=== PATIENT | female | born 2000 | race Caucasian/White ===

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

== ENCOUNTER 2019-02-10 19:05 | Emergency (ER) | payer OTHER, SELFPAY ==
[2019-02-10 19:10] VITALS: BP 129/82; PULSE 134; RESP 20; TEMP 37; O2SAT 100; BMI 19.5
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
[2019-02-10 19:36] LABS: Add Manual Diff / Slide Review NO; Basophils Absolute Auto 0 /uL (0-100); Basophils Percent Auto 0.4 % (0-2); Eosinophils Absolute Auto 100 /uL (0-450); Eosinophils Percent Auto 1.7 % (2-4); Hematocrit 40.9 % (36-46); Lymphocytes Absolute Auto 2000 /uL (1100-4500); Lymphocytes Percent Auto 27.1 % (25-40); Mean Corpuscular HGB Conc 34.3 % (30-36); Mean Corpuscular Hemoglobin 30.1 PG (26-34); Mean Corpuscular Volume 87.7 fL (80-100); Monocytes Absolute Auto 600 /uL (0-900); Neutrophils Absolute Auto 4700 /uL (1500-7000); Neutrophils Percent Auto 62.8 % (50-75); Platelet Count 224 X10^3/uL (150-400); Red Blood Cell Count 4.67 X10^6/uL (4.0-5.2); Red Cell Distribution Width 12.3 % (11.6-14.8); White Blood Cell Count 7.5 X10^3/uL (4.5-11.0)
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
[2019-02-10] MEDS: HYDROMORPHONE 1 MG INJ 0.5 MG IV ×2 (19:43→20:07)
[2019-02-10 19:46] LABS: Blood Urea Nitrogen 7 mg/dL (7-17); Calcium 10.1 mg/dL (8.4-10.2); Carbon Dioxide 23 mmol/L (22-32); Chloride 104 mmol/L (98-107); Estimated Glomerular Filt Rate > 60.0 mL/min (>60); Glucose 102 mg/dL (70-100); HEMOLYSIS < 15 (0-50); Potassium 3.5 mmol/L (3.4-5.1); Sodium 136 mmol/L (137-145)
--- NOTE | 2019-02-10 19:53 | PC.NURSE ---
Having numbness to right hand, most notably right pinky and right thumb. Very limited range of motion to hand, but no pain to wrist. Complaining of pain to the right elbow and right shoulder. No visible deformity seen.
[2019-02-10 19:59] LABS: Pregnancy Test Serum,Qual Negative (Negative)
[2019-02-10 20:04] VITALS: BP 128/73; PULSE 98; RESP 14; O2SAT 98
[2019-02-10 20:30] VITALS: BP 119/65; PULSE 95; RESP 16; O2SAT 100
--- NOTE | 2019-02-10 20:37 | PC.NURSE ---
Back from head/cspine CT. RN with patient for c-spine precautions during transfer to CT table. Pt's hand numbness remains unchanged after transfer.
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
[2019-02-10] MEDS: KETOROLAC 60 MG/2 ML VIAL 30 MG IV (21:05)
[2019-02-10 21:15] VITALS: PULSE 107; RESP 20; O2SAT 98
[2019-02-10 22:00] VITALS: BP 111/63; PULSE 83; RESP 14; O2SAT 99
[2019-02-10] MEDS: HYDROCODONE/ACET 5/325 PREPACK 1 BOTTLE MISC (22:17)
== END 2019-02-10 22:22 | disposition home or self-care (01) ==
PROVIDERS: Emergency Provider Emergency Medicine
DX: S40.021A Contusion of right upper arm, initial encounter (principal); G58.8 Other specified mononeuropathies; R20.0 Anesthesia of skin; M54.2 Cervicalgia; V86.56XA Driver of dirt bike or motor/cross bike injured in nontraffic accident, initial encounter
CPT/HCPCS: 36591; 70450; 71045; 72125; 73030; 73070; 73100; 73200; 80048; 81003; 84703; 85025; 96374; 96375; 96376; 99283; 99284; J1170; J1885

== ENCOUNTER → 2019-04-15 19:23 | Outpatient (CLI) | payer OTHER, SELFPAY | PROVIDERS: PCP Nurse Practitioner Family; Visit Provider Physician Assistant | DX: R30.0 Dysuria (principal) | CPT/HCPCS: 87086 ==

== ENCOUNTER → 2019-04-16 11:37 | Outpatient (CLI) | payer OTHER, SELFPAY ==
[2019-04-16 13:14] LABS: Urine N gonorrhoeae NOT DETECTED
[2019-04-16 13:59] LABS: Urine Chlamydia NOT DETECTED
== END ==
PROVIDERS: PCP Nurse Practitioner Family; Visit Provider Physician Assistant
DX: Z11.3 Encounter for screening for infections with a predominantly sexual mode of transmission (principal)
CPT/HCPCS: 87491; 87591

== ENCOUNTER → 2019-05-07 13:04 | Outpatient (CLI) | payer OTHER, SELFPAY ==
--- NOTE | 2019-05-07 13:05 | DI.US.S_ITS ---
PROCEDURE: US PELVIC COMPLETE INDICATIONS: VERIFY POSITION OF IUD TECHNIQUE: Real-time scanning was performed of the pelvic organs, with image documentation. Additional endovaginal scanning was necessary due to incomplete visualization of the adnexal and endometrial structures by transabdominal scanning. COMPARISON: None. FINDINGS: Transabdominal scanning: Limited scanning through the kidneys shows no hydronephrosis. No pathologic free abdominal or pelvic fluid. Endovaginal scanning: Uterus: Uterus is normal in size at 5.9 x 3.0 x 4.6 cm. The endometrium measures 2.7 mm in combined thickness. Intrauterine device in expected position. Ovaries: Ovaries are normal bilaterally. No adnexal masses seen. IMPRESSION: Intrauterine device in expected position. Dictated by: Jl FRIED Interpreted: Juan Elliott MD on 05/07/2019 at 14:06 Approved by: Juan Elliott M.D. on 05/07/2019 at 16:28
== END ==
PROVIDERS: PCP Nurse Practitioner Family; Visit Provider Nurse Practitioner
DX: Z30.431 Encounter for routine checking of intrauterine contraceptive device (principal); R10.2 Pelvic and perineal pain; N92.0 Excessive and frequent menstruation with regular cycle
CPT/HCPCS: 76830; 76856

== ENCOUNTER → 2019-06-18 10:00 | Outpatient (CLI) | payer OTHER, MEDICAID, SELFPAY ==
[2019-06-18 11:42] LABS: TSH w/ Reflex to FT4 3.32 uIU/mL (0.47-4.68)
== END ==
PROVIDERS: PCP Nurse Practitioner Family; Visit Provider Nurse Practitioner Family
DX: F41.9 Anxiety disorder, unspecified (principal)
CPT/HCPCS: 36415; 84443

== ENCOUNTER 2019-09-14 11:03 | Emergency (ER) | payer OTHER, MEDICAID, SELFPAY ==
[2019-09-14 11:09] VITALS: BP 130/71; PULSE 116; RESP 18; TEMP 36.8; O2SAT 100; BMI 19.5
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
--- NOTE | 2019-09-14 11:35 | ED_ITS ---
HPI - Extremity Injury (Lower) <BRAD Gentile - Last Filed: 09/14/19 15:27> General Chief Complaint: Extremity Injury, Lower Stated Complaint: left ankle injury Time Seen by Provider: 09/14/19 12:37 Source: patient Mode of arrival: Wheelchair Limitations: no limitations History of Present Illness HPI Narrative: The patient is a 19 year old female nonsmoker who denies pertinent medical history presents with a chief complaint of left ankle injury. She jumped off of a tailgate yesterday, and felt pain in her ankle. She does not believe her ankle rolled. She was initially able to walk, but then was unable to bear weight due to pain. She has tried ice, Tylenol, Motrin. She has not taken anything for pain today. She denies any history of previous ankle injuries. She denies any numbness or tingling. She denies any other injuries. She complains of swelling on the outside of her left ankle, states that is where her pain is worse. Related Data Home Medications Medication Instructions Recorded Confirmed levonorgestrel INTRAUTERINE each 07/03/18 08/15/19 Previous Rx's Medication Instructions Recorded propranolol 10 mg tablet 10 mg PO BID #60 tab 06/18/19 escitalopram oxalate 20 mg tablet 20 mg PO DAILY #60 tab 07/22/19 ramelteon 8 mg tablet 8 mg PO BEDTIME #60 tab 08/15/19 ketorolac 10 mg PO TID PRN #14 tab 09/14/19 Allergies Allergy/AdvReac Type Severity Reaction Status Date / Time grass pollen [GRASS POLLEN] Allergy Intermediate Verified 08/15/19 12:08 mold [MOLD] Allergy Intermediate Verified 08/15/19 12:08 pollen extracts Allergy Intermediate Verified 08/15/19 12:08 [POLLEN EXTRACTS] latex [LATEX] Allergy Mild PRURITIS Verified 08/15/19 12:08 cats Allergy Intermediate Uncoded 08/15/19 12:08 Review of Systems <BRAD Gentile - Last Filed: 09/14/19 15:27> Review of Systems Narrative: GENERAL: Denies chills, fatigue, malaise, fever, sweats. HEENT: Denies sinus pain, ear pain, sore throat, difficulty swallowing, dizziness. RESPIRATORY: Denies dyspnea, cough, wheezing, hemoptysis, sputum. CARDIOVASCULAR: Denies chest pain, palpitations, orthopnea, edema, GASTROINTESTINAL: Denies nausea, vomiting, abdominal pain, diarrhea, constipation, melena. : Denies dysuria, frequency, incontinence, hematuria, urinary retention. MUSCULOSKELETAL: See HPI SKIN: See HPI NEUROLOGIC: Denies weakness, headache, numbness, change in speech, confusion, seizures, incoordination. PSYCHIATRIC: No concerning psychosocial issues. 12 point review of systems is negative except for those stated above Patient History <BRAD Gentile - Last Filed: 09/14/19 15:27> Medical History Depression with anxiety (Acute 2005) Insomnia (Acute) Panic attack (Acute 2005) Patient denies significant medical history (Acute) Social History Smoking Status: Never smoker second hand exposure: No alcohol intake: never substance use type: does not use Smoking Status: Never smoker alcohol intake frequency: 0-2 drinks per day Substance Use Type: does not use Exam <BRAD Gentile - Last Filed: 09/14/19 15:27> Narrative Exam Narrative: GENERAL: This is a well-nourished, well-developed patient, in no acute distress HEAD: Atraumatic. Normocephalic. No temporal or scalp tenderness. EYES: Pupils equal round and reactive. Extraocular motions intact. No scleral icterus. No injection or drainage. ENT: Nose without bleeding, purulent drainage or septal hematoma. Throat without erythema, tonsillar hypertrophy or exudate. Uvula midline. Airway patent. NECK: Trachea midline. No JVD or lymphadenopathy. Supple, nontender, no meningeal signs. CARDIOVASCULAR: Regular rate and rhythm without murmurs, gallops, or rubs. RESPIRATORY: No cough. No increased respiratory effort. No accessory muscle use. GASTROINTESTINAL: Abdomen soft, non-tender, nondistended. No hepato- splenomegaly, or palpable masses. No guarding. EXTREMITIES: Pain to palpation left ankle, over bridge of foot to lateral malleolus. Positive pedal pulses. No pain to palpation of forefoot. Cap refill less than 2 seconds. BACK: Nontender without deformity or crepitance. No flank tenderness. NEURO: AOx3. SKIN: Ecchymosis noted on lateral aspect of left ankle. No abrasion laceration or compromise skin integrity. Initial Vital Signs Initial Vital Signs: Vital Signs Temperature 98.3 F 09/14/19 11:09 Pulse Rate 116 H 09/14/19 11:09 Respiratory Rate 18 09/14/19 11:09 Blood Pressure 130/71 09/14/19 11:09 Pulse Oximetry 100 09/14/19 11:09 <Aristeo Saenz DO - Last Filed: 09/14/19 19:52> Initial Vital Signs Initial Vital Signs: Vital Signs Temperature 98.3 F 09/14/19 11:09 Pulse Rate 116 H 09/14/19 11:09 Respiratory Rate 18 09/14/19 11:09 Blood Pressure 130/71 09/14/19 11:09 Pulse Oximetry 100 09/14/19 11:09 Procedures <BRAD Gentile - Last Filed: 09/14/19 15:27> Orthopedic Splinting/Casting Injury #1: Side: left Lower Extremity Injury Location: ankle Lower Extremity Immobilizer: boot orthosis Other Orthopedic Equipment: crutches Post splinting neuro exam: intact Post splinting vascular exam: intact Placed by: Nursing Course <BRAD Gentile - Last Filed: 09/14/19 15:27> Orders Ordered: ED Orders 09/14/19 11:14 XR ankle LT min 3V Stat Discontinued Medications Ketorolac Tromethamine (Toradol) 60 mg IM NOW ONE Stop: 09/14/19 13:41 Last Admin: 09/14/19 13:58 Dose: 60 mg Documented by: SANDRA Aj Consultation #1: Dr Fitzpatrick from [facility] viewing films. Recommends walking boot and follow-up. As well as rest ice compression elevation. Time: 13:19 Vital Signs Vital signs: Vital Signs - 8 hr 09/14/19 14:22 Pulse Rate 91 H Pulse Rate [Left Dorsalis Pedis] 80 Respiratory Rate 16 Blood Pressure [Right Arm] 118/68 Pulse Oximetry 96 <Aristeo Saenz DO - Last Filed: 09/14/19 19:52> Orders Ordered: ED Orders 09/14/19 11:14 XR ankle LT min 3V Stat Discontinued Medications Ketorolac Tromethamine (Toradol) 60 mg IM NOW ONE Stop: 09/14/19 13:41 Last Admin: 09/14/19 13:58 Dose: 60 mg Documented by: SANDRA Vital Signs Vital signs: Vital Signs - 8 hr 09/14/19 14:22 Pulse Rate 91 H Pulse Rate [Left Dorsalis Pedis] 80 Respiratory Rate 16 Blood Pressure [Right Arm] 118/68 Pulse Oximetry 96 MDM - Extremity Injury (Lower) <BRAD Gentile - Last Filed: 09/14/19 15:27> Lab Data Labs: Point of Care Testing Test Results Negative Imaging Data Extremity x-ray #1: Radiologist's Impression: [address] [place] [id number] XRay Report Signed Patient: Lorena Mills RMR#: [id number] : 2000Acct:[id number] Age/Sex: 19 / FDate of Service: 09/14/19 Loc: ED Accession Number: [id number] Procedure: XR ankle LT min 3V Ordering Provider: Zaynab Pal PROCEDURE: XR ANKLE LT MIN 3V INDICATIONS: pain/injury >12hrs TECHNIQUE: 3 views of the ankle were acquired. COMPARISON: None. FINDINGS: Bones: There is a very small linear ossific/calcific density identified along the lateral border of the talus, likely representing an acute fracture. No additional fractures are evident. No suspicious osseous lesions are present. The alignment of the ankle mortise is within normal limits. No significant degenerative changes are appreciated. Soft tissues: There is a tibiotalar joint effusion with prominent soft tissue swelling of the ankle, more prominent overlying the lateral malleolus. IMPRESSION: Small avulsion fracture involving the lateral border of the talus. Dictated by: Raz Vazquez M.D. on 09/14/2019 at 10:29 Approved by: Raz Vazquez M.D. on 09/14/2019 at 10:31 [facility] Narrative Medical decision making narrative: The patient is a 19-year-old female who presents with a chief complaint of left ankle pain. Her images were viewed by Dr. Fitzpatrick from [facility]. She is placed in a walking boot accordingly. I gave her Toradol in the emergency department And gave prescription with strict instructions to not combine with any other anti- inflammatories. She does not want anything stronger for pain. I discussed at length follow up with primary care provider as well as [facility]. <Aristeo Saenz - Last Filed: 09/14/19 19:52> Lab Data Labs: Point of Care Testing Test Results Negative Discharge Plan Departure Patient Disposition: Home Clinical Impression: Avulsion fracture of left talus Qualifiers: Encounter type: initial encounter Fracture type: closed Fracture alignment: nondisplaced Qualified Code(s): S92.155A - Nondisplaced avulsion fracture (chip fracture) of left talus, initial encounter for closed fracture Discharge Date/Time: 09/14/19 14:26 Instructions: How to Use Crutches, How To Perform RICE (Rest, Ice, Compress, Elevate), DI for Talus Fracture Activity Restrictions/Additional Instructions: Thank you for trusting us with your care today As discussed, the x-ray shows a small avulsion fracture on the outside of your talus bone of her ankle. Please use rest ice compression elevation. I sent a prescription of Toradol to [facility]. I have given you a prescription of Toradol. This is an NSAID. Do not combine it with other NSAIDs such as Aleve or ibuprofen. I suggest taking it with some food, as it can irritate your stomach. You can take Tylenol in addition to this. Please follow-up with primary care provider as well as [facility] Please come back to the emergency department for any acute concerns Prescriptions: New ketorolac 10 mg tablet 10 mg PO TID PRN (Reason: pain) Qty: 14 RF: 0 No Action propranolol 10 mg tablet 10 mg PO BID Qty: 60 RF: 0 ramelteon 8 mg tablet 8 mg PO BEDTIME Qty: 60 RF: 0 levonorgestrel [Kyleena] 17.5 mcg/24 hr (5 years) intrauterine device Intrauterine RF: 0 escitalopram oxalate 20 mg tablet 20 mg PO DAILY Qty: 60 RF: 0 Referrals: [facility] [Provider Group] Sherron Marr ARNP [Primary Care Provider] - Stand Alone Forms: School Release Note
[2019-09-14] MEDS: KETOROLAC 60 MG/2 ML VIAL IM (13:58)
[2019-09-14 14:22] VITALS: BP 118/68; PULSE 80; PULSE 91; RESP 16; O2SAT 96
== END 2019-09-14 14:26 | disposition home or self-care (01) ==
PROVIDERS: Emergency Provider Nurse Practitioner Family; PCP Nurse Practitioner Family
DX: S92.155A Nondisplaced avulsion fracture (chip fracture) of left talus, initial encounter for closed fracture (principal); X50.0XXA Overexertion from strenuous movement or load, initial encounter
CPT/HCPCS: 73610; 81025; 96372; 99284; J1885

== ENCOUNTER 2020-01-04 23:03 | Emergency (ER) | payer OTHER, MEDICAID, SELFPAY ==
[2020-01-04 23:08] VITALS: BP 137/81; PULSE 137; RESP 18; TEMP 37.3; O2SAT 99
[2020-01-04 23:24] LABS: Appearance Urine UA Cloudy; Color Urine UA ORANGE
[2020-01-04 23:28] LABS: Bacteria Urine Moderate (10-30); RBC Urine >100/HPF (0-5/HPF); Squamous Epithelial Cell Urine 1-5 /HPF (0-5/HPF); WBC Urine 30-100/HPF (0-5/HPF)
[2020-01-04 23:29] LABS: Culture Indicated Urine Specimen Cultured
[2020-01-04] MEDS: TRIMETH/SULFA 160/800 (DS) TABLET 1 TAB PO (23:52)
[2020-01-04] MEDS: PHENAZOPYRIDINE 100 MG TABLET 200 MG PO (23:52)
--- NOTE | 2020-01-04 23:54 | ED.FEMALEGU ---
HPI - Female Genitourinary General Chief complaint: Urogenital-Female Stated complaint: thinks she has a UTI Time Seen by Provider: 01/04/20 23:45 Source: patient Mode of arrival: Ambulatory Limitations: no limitations History of Present Illness HPI Narrative: The patient has been symptomatic for UTI in 4 days. She has dysuria frequency. She also notes hematuria. She has lower abdominal cramping. She has mild right flank cramping. She has no fever chills, she has no nausea vomiting. She is not . She has no chronic medical problems. She has no other complaints. Related Data Home Medications Medication Instructions Recorded Confirmed levonorgestrel INTRAUTERINE each 07/03/18 09/24/19 Previous Rx's Medication Instructions Recorded propranolol 10 mg tablet 10 mg PO BID #60 tab 06/18/19 escitalopram oxalate 20 mg tablet 20 mg PO DAILY #60 tab 07/22/19 ramelteon 8 mg tablet 8 mg PO BEDTIME #60 tab 08/15/19 naproxen 500 mg tablet 500 mg PO BID #30 tab 10/07/19 phenazopyridine [Pyridium] 200 mg PO Q8H 3 Days #9 tab 01/04/20 sulfamethoxazole-trimethoprim 1 tab PO BID 7 Days #14 tab 01/04/20 Allergies Allergy/AdvReac Type Severity Reaction Status Date / Time grass pollen [GRASS POLLEN] Allergy Intermediate Verified 09/24/19 10:30 mold [MOLD] Allergy Intermediate Verified 09/24/19 10:30 pollen extracts Allergy Intermediate Verified 09/24/19 10:30 [POLLEN EXTRACTS] latex [LATEX] Allergy Mild PRURITIS Verified 09/24/19 10:30 cats Allergy Intermediate Uncoded 09/24/19 10:30 Review of Systems Review of Systems ROS Unobtainable: All systems reviewed & are unremarkable except as noted in HPI and below Constitutional Constitutional: Denies chills, Denies fever(s), Denies headache(s) and Denies weakness ENT Ears, Nose, Mouth, and Throat: Denies headache(s), Denies neck pain and Denies sore throat Cardiovascular Cardiovascular: Denies dyspnea Comments: No chest discomfort Respiratory Respiratory: Denies cough, Denies dyspnea and Denies wheezing Gastrointestinal Comments: Lower abdominal cramping. Genitourinary Genitourinary: Reports as per HPI Genitourinary: Reports as per HPI Musculoskeletal Musculoskeletal: Reports back pain and Denies neck pain Neurologic Neurologic: Denies headache(s) and Denies weakness Allergic/Immunologic Allergic/Immunologic: Denies wheezing Patient History Medical History Depression with anxiety (Acute 2006) Insomnia (Acute) Panic attack (Acute 2005) Patient denies significant medical history (Acute) alcohol intake frequency: 0-2 drinks per day Substance Use Type: does not use Exam Initial Vital Signs Initial Vital Signs: Vital Signs Temperature 99.1 F 01/04/20 23:08 Pulse Rate 137 H 01/04/20 23:08 Respiratory Rate 18 01/04/20 23:08 Blood Pressure 137/81 01/04/20 23:08 Pulse Oximetry 99 01/04/20 23:08 Const General: cooperative and well developed Nutritional Appearance: well nourished Resp Effort & Inspection: normal respiratory effort and able to speak in complete sentences Auscultation: clear to auscultation bilaterally Cardio Rate: regular rate Rhythm: regular rhythm Heart Sounds: S1 normal, S2 normal, no click, no gallops, no murmurs and no rubs Pulses: normal peripheral pulses GI Other: Mild right lower quadrant and suprapubic tenderness. No distention. No guarding or rebound. Back/Spine/Pelvis Back: CVA tenderness right Skin General: no rashes or lesions noted Neuro General: patient alert, patient oriented x3, gait normal and no focal motor deficits Speech: speech normal Course Course Course Narrative: The patient has a urinary tract infection. She has been started on Septra DS for the UTI. was given for the cramping. She is advised to drink plenty of fluids care. She is advised to return here if symptoms escalate. Orders Ordered: ED Orders 01/04/20 23:15 Urinalysis and Microscopic Stat Urine Culture Stat Discontinued Medications Phenazopyridine HCl (Pyridium) 200 mg PO NOW ONE Stop: 01/04/20 23:46 Last Admin: 01/04/20 23:52 Dose: 200 mg Documented by: JESUS Trimethoprim/Sulfamethoxazole (Bactrim Ds) 1 tab PO NOW ONE Stop: 01/04/20 23:46 Last Admin: 01/04/20 23:52 Dose: 1 tab Documented by: JESUS Vital Signs Vital signs: Vital Signs - 8 hr 01/04/20 23:08 Temperature 99.1 F Pulse Rate 137 H Respiratory Rate 18 Blood Pressure 137/81 Pulse Oximetry 99 MDM - Female Genitourinary Lab Data Labs: Lab Results 01/04/20 Range/Units 23:15 Urine Color [place] Urine Appearance Cloudy Urine pH TNP Ur Specific [place] TNP Urine Protein TNP Urine Glucose (UA) TNP Urine Ketones TNP Urine Occult Blood TNP Urine Nitrate TNP Urine Bilirubin TNP Urine Urobilinogen TNP Ur Leukocyte Esterase TNP Urine RBC >100/hpf H (0-5/HPF) Urine WBC 30-100/hpf H (0-5/HPF) Ur Squamous Epith Cells 1-5 /hpf (0-5/HPF) Urine Bacteria Moderate (10-30) H (None) Ur Culture Indicated? Specimen cultured Point of Care Testing Test Results Negative Discharge Plan Departure Patient Disposition: Home Clinical Impression: UTI (urinary tract infection) Qualifiers: Urinary tract infection type: acute cystitis Hematuria presence: with hematuria Qualified Code(s): N30.01 - Acute cystitis with hematuria Discharge Date/Time: 01/05/20 00:20 Instructions: DI for Urinary Tract Infection (UTI) Activity Restrictions/Additional Instructions: Drink plenty of water, stay well hydrated. Take Tylenol if necessary for pain. Septra DS 2 times daily for 7 days. Pyridium every 8 hours as needed for bladder cramping. Return the ER if you developed increasing flank pain, fever, or nausea vomiting Prescriptions: New sulfamethoxazole-trimethoprim 800-160 mg tablet 1 tab PO BID 7 Days Qty: 14 RF: 0 phenazopyridine [Pyridium] 200 mg tablet 200 mg PO Q8H 3 Days Qty: 9 RF: 0 No Action naproxen 500 mg tablet 500 mg PO BID Qty: 30 RF: 0 propranolol 10 mg tablet 10 mg PO BID Qty: 60 RF: 0 ramelteon 8 mg tablet 8 mg PO BEDTIME Qty: 60 RF: 0 levonorgestrel [Kyleena] 17.5 mcg/24 hr (5 years) intrauterine device Intrauterine RF: 0 escitalopram oxalate 20 mg tablet 20 mg PO DAILY Qty: 60 RF: 0 Referrals: Sherron Marr ARNP [Primary Care Provider] -
[2020-01-05 00:20] VITALS: BP 107/55; PULSE 81; RESP 16; O2SAT 99
== END 2020-01-05 00:20 | disposition home or self-care (01) ==
PROVIDERS: Emergency Provider Emergency Medicine; PCP Nurse Practitioner Family
DX: N30.01 Acute cystitis with hematuria (principal)
CPT/HCPCS: 81001; 81025; 87086; 99283

== ENCOUNTER → 2020-03-04 13:27 | Outpatient (CLI) | payer OTHER, MEDICAID, SELFPAY | PROVIDERS: PCP Nurse Practitioner Family; Referring Provider Specialist; Visit Provider Specialist | DX: R31.9 Hematuria, unspecified (principal); Z87.440 Personal history of urinary (tract) infections | CPT/HCPCS: 81002; 87077; 87086 ==

== ENCOUNTER → 2020-05-05 12:37 | Outpatient (CLI) | payer OTHER, MEDICAID, SELFPAY ==
--- NOTE | 2020-05-05 13:38 | DI.CT.S_ITS ---
PROCEDURE: CT ABDOMEN PELVIS WO/W CON INDICATIONS: hematuria TECHNIQUE: Optional 5 mm thick noncontrast images acquired from the diaphragm to the symphysis pubis. After the administration of intravenous contrast, 5 mm thick images acquired from the diaphragm to the symphysis pubis after a 10-minute delay. 2 mm thick coronal and sagittal reformats were then performed of the kidneys and ureters. For radiation dose reduction, the following was used: automated exposure control, adjustment of mA and/or kV according to patient size. COMPARISON: None. FINDINGS: Image quality: Excellent. Lung bases: Lung bases are clear. Heart size is normal. Urinary system: Both kidneys are normal in size, without hydronephrosis or nephrolithiasis on pre-contrast images. No perinephric fat stranding. There is normal bilateral renal enhancement. Renal calyces appear normal in morphology when filled with contrast. Opacified portions of both ureters demonstrate normal caliber. Bladder wall thickness is normal. No calcified bladder stones. Other solid organs: Liver is normal in size and enhancement. Gallbladder is unremarkable. Biliary system is non dilated. Pancreas enhances normally. Spleen is normal in size and enhancement. No adrenal nodules. Peritoneum and bowel: Bowel loops demonstrate normal wall thickness and caliber. No free fluid or air. Nodes and vessels: No retroperitoneal or mesenteric adenopathy by size criteria. Aorta and inferior vena cava are normal in size. Abdominal wall: No ventral hernias. Pelvis: No pathologic free pelvic fluid. No inguinal hernias or adenopathy. There is an IUD visualized within the endometrial cavity and appears appropriately position. Reproductive organs are otherwise unremarkable as visualized. Bones: No suspicious bony lesions. No vertebral body compression fractures. IMPRESSION: CT abdomen and pelvis without acute abnormalities. No findings to explain patient's history of hematuria. Dictated by: Moncho Barragan M.D. on 05/05/2020 at 17:06 Approved by: Moncho Barragan M.D. on 05/05/2020 at 17:07
== END ==
PROVIDERS: PCP Nurse Practitioner Family; Referring Provider Specialist; Visit Provider Specialist
DX: R31.9 Hematuria, unspecified (principal)
CPT/HCPCS: 74178; Q9967

== ENCOUNTER 2020-06-07 18:51 | Emergency (ER) | payer OTHER, MEDICAID, SELFPAY ==
[2020-06-07 18:53] VITALS: BP 140/77; PULSE 124; RESP 16; TEMP 37.2; O2SAT 100; BMI 20.7
--- NOTE | 2020-06-07 19:35 | ED_ITS ---
HPI - General Adult General Chief complaint: Urogenital-Female Stated complaint: POSSIBLE UTI Time Seen by Provider: 06/07/20 19:23 Source: patient Mode of arrival: Ambulatory Limitations: no limitations History of Present Illness HPI narrative: [age] year old female here for evaluation approximately 24 hours of urinary frequency and dysuria and urgency. She states she has had multiple urinary tract infections in the past. She does not remember what the last antibiotic that she was on but was earlier this year. She denies any back pain and no nausea vomiting. No vaginal bleeding. Patient states she is not concerned about sexually transmitted diseases. Related Data Home Medications Medication Instructions Recorded Confirmed levonorgestrel INTRAUTERINE each 07/03/18 05/03/20 fexofenadine 60 mg tablet 60 mg PO BID 03/04/20 05/03/20 Previous Rx's Medication Instructions Recorded propranolol 10 mg tablet 10 mg PO BID #60 tab 06/18/19 escitalopram oxalate 20 mg tablet 20 mg PO DAILY #60 tab 07/22/19 ramelteon 8 mg tablet 8 mg PO BEDTIME #60 tab 08/15/19 cephalexin [Keflex] 500 mg PO BID 3 Days #6 cap 06/07/20 phenazopyridine [Pyridium] 100 mg PO TID PRN #6 tab 06/07/20 Allergies Allergy/AdvReac Type Severity Reaction Status Date / Time grass pollen [GRASS POLLEN] Allergy Intermediate Verified 05/03/20 08:26 mold [MOLD] Allergy Intermediate Verified 05/03/20 08:26 pollen extracts Allergy Intermediate Verified 05/03/20 08:26 [POLLEN EXTRACTS] latex [LATEX] Allergy Mild PRURITIS Verified 05/03/20 08:26 cats Allergy Intermediate Uncoded 05/03/20 08:26 Review of Systems Constitutional Constitutional: Denies fever(s) and Denies headache(s) ENT Ears, Nose, Mouth, and Throat: Denies headache(s) Cardiovascular Cardiovascular: Denies chest pain and Denies dyspnea Respiratory Respiratory: Denies dyspnea Gastrointestinal Gastrointestinal: Denies abdominal pain, Denies nausea and Denies vomiting Genitourinary Genitourinary: Reports dysuria, Denies flank pain, Reports urinary hesitancy and Reports urinary urgency Genitourinary: Reports dysuria, Denies flank pain, Reports urinary hesitancy, Reports urinary urgency and Denies vaginal discharge Musculoskeletal Musculoskeletal: Denies arthralgias Integumentary/Breasts Skin/Breast: Denies rash Neurologic Neurologic: Denies behavioral changes and Denies headache(s) Psychiatric Psychiatric: Denies behavioral changes Hematologic/Lymphatic Hematologic/Lymphatic: Denies easy bleeding and Denies easy bruising Patient History Medical History Chronic UTI Depression with anxiety (2005) Hematuria Hematuria Hematuria History of UTI Insomnia Lower urinary tract symptoms (LUTS) Panic attack (2005) Patient denies significant medical history Surgical History H/O nasal septoplasty Social History Smoking Status: Current every day smoker second hand exposure: No alcohol intake: never substance use type: does not use Smoking Status: Current every day smoker alcohol intake frequency: 0-2 drinks per day Substance Use Type: does not use Exam Initial Vital Signs Initial Vital Signs: Vital Signs Temperature 98.9 F 06/07/20 18:53 Pulse Rate 124 H 06/07/20 18:53 Respiratory Rate 16 06/07/20 18:53 Blood Pressure 140/77 06/07/20 18:53 Pulse Oximetry 100 06/07/20 18:53 Const General: cooperative and healthy appearing Resp Effort & Inspection: normal respiratory effort GI Inspection: non-distended Palpation: soft, No firm and No tender Back/Spine/Pelvis Back: No CVA tenderness Skin Lesions: no lesions Rashes: no rashes Neuro General: patient alert and patient awake Extrem General: normal to inspection and capillary refill normal Psych Appearance: grossly normal and well kempt Course Orders Ordered: ED Orders 06/07/20 19:00 Urine Culture Stat Urine Microscopic Stat Vital Signs Vital signs: Vital Signs - 8 hr 06/07/20 18:53 Temperature 98.9 F Pulse Rate 124 H Respiratory Rate 16 Blood Pressure 140/77 Pulse Oximetry 100 Medical Decision Making Lab Data Lab results reviewed: Yes I reviewed the patient's lab results. Labs: Lab Results 06/07/20 Range/Units 19:00 Urine RBC 0-1/hpf D (0-5/HPF) Urine WBC 1-5/hpf (0-5/HPF) Ur Squamous Epith Cells 1-5 /hpf (0-5/HPF) Urine Bacteria Few (2-10) H (None) Ur Culture Indicated? Culture not indicate Point of Care Testing Test Results Negative Urine Dip Bedside Urine Glucose Negative Bedside Urine Bilirubin - Negative Bedside Urine Ketone - Negative Urine Specific [place] 1.015 Bedside Urine Occult Blood + Bedside Urine pH 6.0 Bedside Urine Protein - Negative Bedside Urine Urobilinogen +/- 1mg Bedside Urine Nitrite - Negative Bedside Urine Leukocytes - Negative Esterase Point of care testing: Point of Care Testing Test Results Negative Urine Dip Bedside Urine Glucose Negative Bedside Urine Bilirubin - Negative Bedside Urine Ketone - Negative Urine Specific [place] 1.015 Bedside Urine Occult Blood + Bedside Urine pH 6.0 Bedside Urine Protein - Negative Bedside Urine Urobilinogen +/- 1mg Bedside Urine Nitrite - Negative Bedside Urine Leukocytes - Negative Esterase MDM Narrative Medical decision making narrative: Patient's urinalysis is not consistent with a urinary tract infection although she does have bacteria in her urine. Patient states that her symptoms are consistent with prior diagnosis of UTIs. Review of her urine culture show multiple urine cultures without any growth. I did discuss this with her. Plan will be is to send her home with a prescription for peridium and antibiotics. She is going to take the Pyridium for the next 24 hours to see this does not improve her symptoms and potentially hold on any antibiotics however she starts to develop worsening symptoms that she is going to fill the prescriptions start taking the antibiotics as directed. Urine culture was pending at the time of her discharge today. She has no signs of pyelonephritis. She was given return precautions and follow-up instructions. She expressed understanding and agreement. Discharge Plan Departure Patient Disposition: Home Clinical Impression: Dysuria Instructions: DI for Dysuria -- Adult Activity Restrictions/Additional Instructions: A urine culture was pending at the time of your discharge. I do recommend that you start with taking just the peridium to help with your dysuria. If your sy mptoms are not improving with this or if you feel like you are worsening somewhat then start taking the antibiotic as directed. Contact your primary provider for follow-up. Return to the emergency department for any new or worsening symptoms Prescriptions: New phenazopyridine [Pyridium] 100 mg tablet 100 mg PO TID PRN (Reason: pain) Qty: 6 RF: 0 cephalexin [Keflex] 500 mg capsule 500 mg PO BID 3 Days Qty: 6 RF: 0 No Action propranolol 10 mg tablet 10 mg PO BID Qty: 60 RF: 0 ramelteon 8 mg tablet 8 mg PO BEDTIME Qty: 60 RF: 0 levonorgestrel [Kyleena] 17.5 mcg/24 hr (5 years) intrauterine device Intrauterine RF: 0 escitalopram oxalate 20 mg tablet 20 mg PO DAILY Qty: 60 RF: 0 fexofenadine [Lizbeth Allergy] 60 mg tablet 60 mg PO BID RF: 0 Referrals: Sherron Marr ARNP [Primary Care Provider] -
[2020-06-07 19:40] LABS: RBC Urine 0-1/HPF (0-5/HPF)
[2020-06-07 19:41] LABS: Bacteria Urine Few (2-10); Squamous Epithelial Cell Urine 1-5 /HPF (0-5/HPF); WBC Urine 1-5/HPF (0-5/HPF)
--- NOTE | 2020-06-12 16:25 | PC.NURSE ---
Patient called back stating [facility] did not receive call in for medication. Additional call made to [facility] for patient. Informed patient to call back if any additional difficulties getting prescription.
--- NOTE | 2020-06-12 17:11 | PC.NURSE ---
does not carry RX at this time, Patient called requesting call in to [facility]. Prescription called to [facility].
== END 2020-06-07 19:46 | disposition home or self-care (01) ==
PROVIDERS: Emergency Provider Emergency Medicine; PCP Nurse Practitioner Family
DX: R30.0 Dysuria (principal)
CPT/HCPCS: 81003; 81015; 81025; 87077; 87086; 99281; 99282

== ENCOUNTER → 2020-06-21 12:52 | Outpatient (CLI) | payer OTHER, MEDICAID, SELFPAY | PROVIDERS: PCP Nurse Practitioner Family; Visit Provider Physician Assistant | DX: N12 Tubulo-interstitial nephritis, not specified as acute or chronic (principal) | CPT/HCPCS: 87077; 87086; 87186 ==

== ENCOUNTER → 2020-08-24 11:14 | Outpatient (CLI) | payer OTHER, MEDICAID, SELFPAY | PROVIDERS: PCP Nurse Practitioner Family; Visit Provider Nurse Practitioner | DX: R30.0 Dysuria (principal) | CPT/HCPCS: 87086 ==

== ENCOUNTER → 2021-02-17 07:36 | Outpatient (CLI) | payer OTHER, MEDICAID, SELFPAY ==
--- NOTE | 2021-02-17 07:38 | DI.US.S_ITS ---
LIMITED ULTRASOUND OF RIGHT BREAST AND AXILLA: 02/17/2021 CLINICAL: Palpable right breast lump and tender. No prior exams were available for comparison. Color flow and real-time ultrasound of the right breast 12 o'clock, and axilla regions were performed on the areas of interest. There is a 2 cm x 0.8 cm x 1.4 cm oval mass with a circumscribed margin in the right breast at 12 o'clock posterior depth. This oval mass is hypoechoic with a well-defined boundary. This correlates as palpated. Color flow imaging demonstrates that there is vascularity present. A few scattered lymph nodes were identified in the right axilla with preserved fatty sandy. The cortices measure up to 0.3 cm without eccentric focal thickening. IMPRESSION: PROBABLY BENIGN The 2 cm x 0.8 cm x 1.4 cm oval mass in the right breast likely represents a fibroadenoma and is probably benign but malignancy cannot be excluded. The findings were discussed with the patient by Dr. Frankel with the recommendation to perform an ultrasound guided biopsy or return for followup ultrasound every 6 months for 2 years. Patient elected to return for a follow-up ultrasound in 6 months. A follow-up ultrasound in 6 months is recommended to demonstrate stability. This exam was interpreted at Station ID: [id number]. Electronically Signed By: Pillo nazario/:02/17/2021 09:56:09 letter sent: Followup Recommended Ultrasound BI-RADS: 3 Probably benign
--- NOTE | 2021-02-17 07:38 | DI.US.S_ITS ---
LIMITED ULTRASOUND OF LEFT BREAST AND AXILLA: 02/17/2021 CLINICAL: Palpable left breast lump and tender. No prior exams were available for comparison. Color flow and real-time ultrasound of the left breast 12 o'clock, and axilla regions were performed on the areas of interest. There is a 0.7 cm x 0.8 cm x 0.5 cm oval mass with a circumscribed margin in the left breast at 12 o'clock posterior depth. This oval mass is hypoechoic with a well-defined boundary, internal echoes, and posterior acoustic enhancement. This correlates as palpated. Color flow imaging demonstrates that there is an adjacent vascularity. No suspicious enlarged lymph nodes were seen sonographically in the axilla. IMPRESSION: PROBABLY BENIGN The 0.7 cm x 0.8 cm x 0.5 cm oval mass in the left breast likely represents a complicated cyst or a fibroadenoma and is probably benign. A follow-up ultrasound in 6 months is recommended. A follow-up ultrasound in 6 months is recommended to demonstrate stability. The findings were discussed with the patient at the conclusion of the study by Dr. Frankel. This exam was interpreted at Station ID: [id number]. Electronically Signed By: Pillo Eddy M.D. ddolivia/:02/17/2021 09:51:26 letter sent: Followup Recommended Ultrasound BI-RADS: 3 Probably benign
== END ==
PROVIDERS: PCP Nurse Practitioner Family; Referring Provider Registered Nurse; Visit Provider Registered Nurse
DX: N63.15 Unspecified lump in the right breast, overlapping quadrants (principal); N63.25 Unspecified lump in the left breast, overlapping quadrants
CPT/HCPCS: 76642

== ENCOUNTER → 2021-05-28 15:22 | Outpatient (CLI) | payer OTHER, MEDICAID, SELFPAY ==
--- NOTE | 2021-05-28 15:25 | DI.RAD.S_ITS ---
PROCEDURE: XR HAND RT MIN 3V INDICATIONS: smashed pinky TECHNIQUE: 3 views of the hand(s) acquired. COMPARISON: None. FINDINGS: Bones: No fractures or dislocations. Carpal bones are normally aligned. No suspicious bony lesions. Soft tissues: No suspicious soft tissue calcifications. IMPRESSION: No displaced fracture can be seen of the 5th finger or elsewhere. Dictated by: Curtis Fink M.D. on 05/28/2021 at 14:34 Approved by: Curtis Fink M.D. on 05/28/2021 at 14:34
== END ==
PROVIDERS: PCP Nurse Practitioner Family; Referring Provider Physician Assistant; Visit Provider Physician Assistant
DX: S69.81XA Other specified injuries of right wrist, hand and finger(s), initial encounter (principal); M79.641 Pain in right hand; X58.XXXA Exposure to other specified factors, initial encounter
CPT/HCPCS: 73130

== ENCOUNTER → 2021-08-08 10:45 | Outpatient (CLI) | payer OTHER, MEDICAID, SELFPAY ==
--- NOTE | 2021-08-08 10:47 | DI.US.S_ITS ---
ULTRASOUND OF RIGHT BREAST: 08/08/2021 CLINICAL: Palpable right breast lump - 6 month follow up. Comparison is made to exam dated: 02/17/2021 [facility]. Color flow and real-time ultrasound of the right breast were performed. Davis scale images of the real-time examination were reviewed. There is a stable 2 cm x 0.8 cm x 1.4 cm oval mass with a circumscribed margin in the right breast at 12 o'clock posterior depth. This oval mass is hypoechoic with a well-defined boundary. This correlates as palpated. Color flow imaging demonstrates that there is vascularity present. IMPRESSION: PROBABLY BENIGN The stable 2 cm x 0.8 cm x 1.4 cm oval mass in the right breast likely represents a fibroadenoma and is probably benign. A follow-up ultrasound in 6 months is recommended. This exam was interpreted at Station ID: [id number]. Electronically Signed By: Jake Culver M.D., jr/:08/10/2021 11:14:32 letter sent: Followup Recommended Ultrasound BI-RADS: 3 Probably benign
--- NOTE | 2021-08-08 10:47 | DI.US.S_ITS ---
LIMITED ULTRASOUND OF LEFT BREAST: 08/08/2021 CLINICAL: Palpable left breast lump - 6 month follow up. Comparison is made to exam dated: 02/17/2021 [facility]. Color flow and real-time ultrasound of the left breast 3 o'clock region were performed. Davis scale images of the real-time examination were reviewed. There is a benign 0.7 cm x 0.8 cm x 0.5 cm oval mass with a circumscribed margin in the left breast at 12 o'clock middle depth. This oval mass is hypoechoic with a well-defined boundary, internal echoes, and posterior acoustic enhancement. This abnormality is decreased in size and correlates as palpated. Color flow imaging demonstrates that there is adjacent vascularity. IMPRESSION: BENIGN There is no sonographic evidence of malignancy. The 0.7 cm x 0.8 cm x 0.5 cm oval mass in the left breast represents a complicated cyst and is benign. This exam was interpreted at Station ID: [id number]. Electronically Signed By: Jake Culver M.D. jr/:08/10/2021 11:15:49 letter sent: Normal Exam Ultrasound BI-RADS: 2 Benign
== END ==
PROVIDERS: PCP Nurse Practitioner Family; Referring Provider Nurse Practitioner Family; Visit Provider Nurse Practitioner Family
DX: N63.10 Unspecified lump in the right breast, unspecified quadrant (principal); N63.20 Unspecified lump in the left breast, unspecified quadrant
CPT/HCPCS: 76642

== ENCOUNTER → 2021-12-15 08:16 | Outpatient (CLI) | payer OTHER, SELFPAY ==
--- NOTE | 2021-12-15 08:19 | DI.RAD.S_ITS ---
PROCEDURE: XR CERVICAL SPINE 2V OR 3V INDICATIONS: cervical tenderness TECHNIQUE: 3 view(s) of the cervical spine were acquired. COMPARISON: None. FINDINGS: Bones: No fractures or dislocations to the T1 level. The lateral masses of C1 appear intact on the odontoid view. No suspicious bony lesions. Intervertebral disc height is normally preserved at all levels. Soft tissues: No prevertebral soft tissue swelling. IMPRESSION: No osseous lesion. If symptoms and/or clinical suspicion for pathology persists, evaluation with MRI should be considered for further assessment. Dictated by: Fern Steiner MD, PhD on 12/15/2021 at 12:47 Approved by: Fern Steiner MD, PhD on 12/15/2021 at 13:45
== END ==
PROVIDERS: PCP Registered Nurse Diabetes Educator; Referring Provider Nurse Practitioner Family; Visit Provider Nurse Practitioner Family
DX: M54.2 Cervicalgia (principal)
CPT/HCPCS: 72040

== ENCOUNTER → 2022-02-23 06:47 | Outpatient (CLI) | payer OTHER, MEDICAID, SELFPAY ==
--- NOTE | 2022-02-23 06:50 | DI.US.S_ITS ---
LIMITED ULTRASOUND OF RIGHT BREAST: 02/23/2022 CLINICAL: Patient returns today to evaluate mass in the right breast. Comparison is made to exams dated: 08/08/2021 ultrasound and 02/17/2021 ultrasound - [facility]. Color flow and real-time ultrasound of the right breast 12 o'clock region were performed. Davis scale images of the real-time examination were reviewed. There is a stable 2 cm x 0.8 cm x 1.4 cm oval mass with a circumscribed margin in the right breast at 12 o'clock posterior depth 2 cm from the nipple. This oval mass is hypoechoic with a well-defined boundary. This correlates as palpated. Color flow imaging demonstrates that there is vascularity present. IMPRESSION: PROBABLY BENIGN The stable 2 cm x 0.8 cm x 1.4 cm oval mass in the right breast likely represents a fibroadenoma and is probably benign. A follow-up right ultrasound in 12 months is recommended. This exam was interpreted at Station ID: [id number]. Electronically Signed By: Manan peralta/:02/23/2022 08:24:59 letter sent: Followup Recommended Ultrasound BI-RADS: 3 Probably benign
== END ==
PROVIDERS: PCP Registered Nurse Diabetes Educator; Referring Provider Registered Nurse Diabetes Educator; Visit Provider Registered Nurse Diabetes Educator
DX: N63.15 Unspecified lump in the right breast, overlapping quadrants (principal)
CPT/HCPCS: 76642